=== PATIENT | female | born 1965 | race Two or more races ===

== ENCOUNTER 2016-07-16 22:04 | Emergency (ER) | payer BC, OTHER ==
[2016-07-17] MEDS ORDERED: ACETAMINOPHEN 500 MG TABLET ONE (00:12)
[2016-07-17] MEDS ORDERED: PREDNISONE 20 MG TABLET ONE (00:12)
[2016-07-17] MEDS ORDERED: PANTOPRAZOLE 40 MG TABLET DR PO ONE (00:12)
== END 2016-07-17 00:29 | disposition home or self-care (01) ==
LOC: ED 22:04
DX: J02.8 Acute pharyngitis due to other specified organisms (principal); B97.89 Other viral agents as the cause of diseases classified elsewhere; E11.9 Type 2 diabetes mellitus without complications; E78.5 Hyperlipidemia, unspecified; E78.2 Mixed hyperlipidemia; Z79.899 Other long term (current) drug therapy
CPT/HCPCS: 87880; 99283 ×2; J7512; A9270 ×2